=== PATIENT | female | born 1940 | race Caucasian/White ===

== ENCOUNTER 2023-06-10 09:41 | Emergency (ER) | payer MEDICARE, BC ==
[2023-06-10] MEDS ORDERED: Acetaminophen 500 MG Tab PO ONE (10:23)
[2023-06-10] MEDS ORDERED: Ketorolac 30 MG/ML SDV IVPUSH ONE (10:35)
[2023-06-10] MEDS ORDERED: Sodium Chloride 0.9% 500 ML IV SCH (10:45)
[2023-06-10 11:04] LABS: CORONAVIRUS COVID-19 NAA POSITIVE (NEGATIVE); INFLUENZA A NAA NEGATIVE (NEGATIVE); INFLUENZA B NAA NEGATIVE (NEGATIVE); RESPIRATORY SYNCYTIAL VIR NAA NEGATIVE (NEGATIVE)
[2023-06-10] MEDS ORDERED: Nirmatrelvir/Ritonavir 300 MG/100 MG Dose Pack PO STA (11:08)
== END 2023-06-10 11:48 | disposition home or self-care (01) ==
LOC: MW.ED 09:41
DX: U07.1 COVID-19 (principal); Z88.5 Allergy status to narcotic agent
CPT/HCPCS: 0241U; 96361; 96374; 99284; A9270; J1885; J7040